=== PATIENT | male | born 1960 | race Two or more races ===

== ENCOUNTER 2024-02-06 14:30 | Emergency (ER) | payer OTHER ==
[~2024-02-06] VITALS: Ht 165.1 cm; Wt 65.9 kg
[2024-02-06 14:37] VITALS: BP 146/79; PULSE 84; RESP 16; TEMP 98.3; O2SAT 98
[2024-02-06] MEDS ORDERED: ATOR10TA PO (14:37)
[2024-02-06] MEDS: PERTUSS(ACELL),DIPH,TET/PF 0.5 ML SYRINGE [ADULT] IM. ONE (17:35)
== END 2024-02-06 18:08 | disposition home or self-care (01) ==
LOC: EMS 14:30
DX: S09.90XA Unspecified injury of head, initial encounter (principal); E11.9 Type 2 diabetes mellitus without complications; E78.00 Pure hypercholesterolemia, unspecified; I10 Essential (primary) hypertension; Z23 Encounter for immunization; Z79.899 Other long term (current) drug therapy; W45.8XXA Other foreign body or object entering through skin, initial encounter; Y93.89 Activity, other specified; Y92.89 Other specified places as the place of occurrence of the external cause; Y99.8 Other external cause status
CPT/HCPCS: 70450; 82962; 90471; 90715; 99285